=== PATIENT | female | born 1935 | race Caucasian/White ===

== ENCOUNTER 2017-08-10 17:10 | Emergency (ER) | payer MEDICARE ==
[~2017-08-10] VITALS: Ht 157.5 cm; Wt 54.0 kg
[2017-08-10 17:24] VITALS: BP 116/70; PULSE 90; RESP 19
[2017-08-10] MEDS ORDERED: diphenhydrAMINE HCL 50 MG/ML VIAL IM ONE (17:30)
[2017-08-10] MEDS ORDERED: LORazepam 2 MG/ML VIAL IM ONE (17:30)
[2017-08-10] MEDS ORDERED: HALOPERIDOL LACTATE 5 MG/ML AMP IM ONE (17:30)
[2017-08-10] MEDS ORDERED: LORazepam 2 MG/ML VIAL ONE (17:31)
[2017-08-10] MEDS ORDERED: LEXA10TA PO (19:11)
[2017-08-10] MEDS ORDERED: HYDR50CA PO (19:11)
[2017-08-10] MEDS ORDERED: LORA-392 PO ×2 (19:11)
[2017-08-10] MEDS ORDERED: ABH GEL TOPICAL (19:11)
[2017-08-10] MEDS ORDERED: CALCTAB94 PO (19:11)
[2017-08-10] MEDS ORDERED: ARIC10TA9 PO (19:11)
--- NOTE | 2017-08-10 19:39 | PD ---
HPI Chief Complaint: Psychiatric Symptoms Time Seen by Provider: 17:26 Travel History International Travel<30 days: No Contact w/Intl Traveler<30days: No Traveled to known affect area: No History of Present Illness HPI This is an 82-year-old female with a history of dementia who presents to the emergency department having been belligerent and aggressive towards the staff at her [facility]. She is unable to provide any history. PFSH Past Medical History Dementia: Yes ?: Not Social History Tobacco Use: No Allergies-Medications (Allergen,Severity, Reaction): Coded Allergies: Penicillins (Verified Allergy, Unknown, 08/10/17) codeine (Verified Allergy, Unknown, 08/10/17) meperidine (Verified Allergy, Unknown, 08/10/17) morphine (Verified Allergy, Unknown, 08/10/17) Reported Meds & Prescriptions Reported Meds & Active Scripts Active Reported Hydroxyzine Pamoate 50 Mg Cap 50 Mg PO BID Lexapro (Escitalopram Oxalate) 10 Mg Tab 10 Mg PO DAILY Aricept (Donepezil HCl) 10 Mg Tablet 10 Mg PO DAILY Calcium 600 (Calcium Carbonate) 600 Mg Calcium (1500 Mg) Tab 600 Mg PO DAILY [Abh Gel ] 2 Ml TOPICAL BID Ativan (Lorazepam) 0.5 Mg Tab 0.5 Mg PO TID Review of Systems ROS Limitations: Poor Historian Except as stated in HPI: all other systems reviewed are Neg Physical Exam Narrative GENERAL: Frail elderly female in no acute distress SKIN: Focused skin assessment warm and dry. HEAD: Atraumatic. Normocephalic. EYES: Pupils equal and round. No injection or drainage. ENT: Moist mucous membranes NECK: Trachea midline. CARDIOVASCULAR: Regular rate and rhythm. No murmur appreciated. RESPIRATORY: Clear to auscultation. Breath sounds equal bilaterally. GASTROINTESTINAL: Abdomen soft, non-tender, nondistended. MUSCULOSKELETAL: No obvious deformities. NEUROLOGICAL: Awake and alert. No obvious cranial nerve deficits. Moving all extremities. PSYCHIATRIC: Agitated, yelling and hitting staff Data Data Last Documented VS Vital Signs Date Time Temp Pulse Resp B/P (MAP) Pulse Ox O2 Delivery O2 Flow Rate FiO2 08/11/17 13:25 08/11/17 12:25 77 14 97 Room Air 08/11/17 07:49 98.1 Orders Orders Lorazepam Inj (Ativan Inj) (08/10/17 17:31) Haloperidol Inj (Haldol Inj) (08/10/17 17:30) Lorazepam Inj (Ativan Inj) (08/10/17 17:30) Diphenhydramine Inj (Benadryl Inj) (08/10/17 17:30) Complete Blood Count With Diff (08/10/17 17:34) Comprehensive Metabolic Panel (08/10/17 17:34) ^ Insert Iv (08/10/17 17:34) Restraints Non-Violent KEVEN.Q3H (08/10/17 20:07) Sodium Chlorid 0.9% 500 Ml Inj (Ns 500 M (08/10/17 21:00) Diet Regular Basic (08/11/17 Breakfast) Hydroxyzine Pamoate (Vistaril) (08/11/17 09:00) Escitalopram (Lexapro) (08/11/17 09:00) Donepezil (Aricept) (08/11/17 09:00) Lorazepam (Ativan) (08/11/17 07:30) Calcium Carbonate (Oscal) (08/11/17 09:00) Psych Screen (08/11/17 07:34) Ed Discharge Order (08/11/17 11:43) Labs Laboratory Tests Test 08/10/17 19:08 White Blood Count 7.4 TH/MM3 Red Blood Count 4.54 MIL/MM3 Hemoglobin 13.9 GM/DL Hematocrit 41.4 % Mean Corpuscular Volume 91.1 FL Mean Corpuscular Hemoglobin 30.5 PG Mean Corpuscular Hemoglobin Concent 33.5 % Red Cell Distribution Width 13.4 % Platelet Count 243 TH/MM3 Mean Platelet Volume 7.7 FL Neutrophils (%) (Auto) 46.3 % Lymphocytes (%) (Auto) 34.5 % Monocytes (%) (Auto) 15.8 % Eosinophils (%) (Auto) 2.6 % Basophils (%) (Auto) 0.8 % Neutrophils # (Auto) 3.4 TH/MM3 Lymphocytes # (Auto) 2.6 TH/MM3 Monocytes # (Auto) 1.2 TH/MM3 Eosinophils # (Auto) 0.2 TH/MM3 Basophils # (Auto) 0.1 TH/MM3 CBC Comment DIFF FINAL Differential Comment Blood Urea Nitrogen 32 MG/DL Creatinine 1.12 MG/DL Random Glucose 114 MG/DL Total Protein 7.0 GM/DL Albumin 3.5 GM/DL Calcium Level 8.9 MG/DL Alkaline Phosphatase 71 U/L Aspartate Amino Transf (AST/SGOT) 31 U/L Alanine Aminotransferase (ALT/SGPT) 18 U/L Total Bilirubin 0.4 MG/DL Sodium Level 144 MEQ/L Potassium Level 4.1 MEQ/L Chloride Level 108 MEQ/L Carbon Dioxide Level 24.7 MEQ/L Anion Gap 11 MEQ/L Estimat Glomerular Filtration Rate 46 ML/MIN MDM Medical Decision Making Medical Screen Exam Complete: Yes Emergency Medical Condition: Yes Interpretation(s) afebrile, no tachycardia, normotensive no leukocytosis renal insufficiency Differential Diagnosis Dehydration, dementia, behavioral disturbance Narrative Course This is an 82-year-old female who has a history of dementia. She is very agitated on arrival. She was given IM sedation. Labs are reassuring. Patient appears to have dementia with behavioral disturbance. She will be evaluated by psychiatry. Nesha Rodriguez MD Aug 10, 2017 19:39
[2017-08-10 20:11] LABS: AUTOMATED NEUTROPHIL # 3.4 TH/MM3 (1.8-7.7); BASOPHIL # 0.1 TH/MM3 (0-0.2); BASOPHIL % 0.8 % (0.0-2.0); EOSINOPHIL # 0.2 TH/MM3 (0-0.4); EOSINOPHIL % 2.6 % (0.0-4.0); HEMATOCRIT 41.4 % (35.0-46.0); HEMOGLOBIN 13.9 GM/DL (11.6-15.3); LYMPH % 34.5 % (9.0-44.0); LYMPHOCYTE # 2.6 TH/MM3 (1.0-4.8); MEAN CELL VOLUME 91.1 FL (80.0-100.0); MEAN CORPUSCULAR HEMOGLOBIN 30.5 PG (27.0-34.0); MEAN CORPUSCULAR HGB CONC 33.5 % (32.0-36.0); MEAN PLATELET VOLUME 7.7 FL (7.0-11.0); MONO % 15.8 % (0.0-8.0); MONOCYTE # 1.2 TH/MM3 (0-0.9); NEUT % 46.3 % (16.0-70.0); PLATELET COUNT 243 TH/MM3 (150-450); RED BLOOD COUNT 4.54 MIL/MM3 (4.00-5.30); RED CELL DISTRIBUTION WIDTH 13.4 % (11.6-17.2); WHITE BLOOD COUNT 7.4 TH/MM3 (4.0-11.0)
[2017-08-10 20:25] LABS: ALT (GPT) 18 U/L (10-53)
[2017-08-10 20:28] LABS: ALKALINE PHOSPHATASE 71 U/L (45-117); TOTAL BILIRUBIN ADULT 0.4 MG/DL (0.2-1.0)
[2017-08-10 20:48] LABS: ALBUMIN 3.5 GM/DL (3.4-5.0); AST (GOT) 31 U/L (15-37); BICARBONATE 24.7 MEQ/L (21.0-32.0); BLOOD UREA NITROGEN 32 MG/DL (7-18); CALCIUM 8.9 MG/DL (8.5-10.1); CHLORIDE 108 MEQ/L (98-107); CREATININE 1.12 MG/DL (0.50-1.00); GLOMERULAR FILTRATION RATE 46 ML/MIN (>89); GLUCOSE,RANDOM 114 MG/DL (74-106); SODIUM (NA) 144 MEQ/L (136-145)
[2017-08-10] MEDS ORDERED: SODIUM CHLORID 0.9% 500 ML INJ 500 ML IV ONE (21:00)
[2017-08-10 22:14] VITALS: BP 140/68; PULSE 83; RESP 16; TEMP 97.6; O2SAT 97
[2017-08-11 04:58] VITALS: BP_SYST 135; BP_SYST 147; BP_DIAS 62; BP_DIAS 68; PULSE 76; RESP 16; O2SAT 97
[2017-08-11] MEDS ORDERED: LORazepam 0.5 MG TAB PO SCH (07:30)
[2017-08-11 07:49] VITALS: BP 103/64; PULSE 98; RESP 17; TEMP 98.1; O2SAT 93
[2017-08-11] MEDS ORDERED: DONEPEZIL HCL 5 MG TAB PO SCH (09:00)
[2017-08-11] MEDS ORDERED: CALCIUM CARBONATE 1.25 GM (CA 500 MG) TAB PO SCH (09:00)
[2017-08-11] MEDS ORDERED: ESCITALOPRAM OXALATE 10 MG TAB PO SCH (09:00)
--- NOTE | 2017-08-11 11:42 | PD ---
Physical Exam Date Seen by Provider: Aug 11, 2017 Time Seen by Provider: 11:40 Narrative 82-year-old female with known dementia, arrives via EMS from nursing facility with reported aggressive behavior toward staff. She was Campbell acted with medication review requested. Patient has been seen by psychiatric staff and deemed to be psychiatrically stable for discharge with a diagnosis of dementia. Recommendation would be to lessen her Ativan frequency, as this may cause her to be less inhibited, which could contribute to her aggressive behavior. Patient is felt to be stable for discharge back to nursing facility. Data Data Last Documented VS Vital Signs Date Time Temp Pulse Resp B/P (MAP) Pulse Ox O2 Delivery O2 Flow Rate FiO2 08/11/17 07:49 98.1 98 17 103/64 (77) 93 Room Air Orders Orders Lorazepam Inj (Ativan Inj) (08/10/17 17:31) Haloperidol Inj (Haldol Inj) (08/10/17 17:30) Lorazepam Inj (Ativan Inj) (08/10/17 17:30) Diphenhydramine Inj (Benadryl Inj) (08/10/17 17:30) Complete Blood Count With Diff (08/10/17 17:34) Comprehensive Metabolic Panel (08/10/17 17:34) ^ Insert Iv (08/10/17 17:34) Restraints Non-Violent KEVEN.Q3H (08/10/17 20:07) Sodium Chlorid 0.9% 500 Ml Inj (Ns 500 M (08/10/17 21:00) Diet Regular Basic (08/11/17 Breakfast) Hydroxyzine Pamoate (Vistaril) (08/11/17 09:00) Escitalopram (Lexapro) (08/11/17 09:00) Donepezil (Aricept) (08/11/17 09:00) Lorazepam (Ativan) (08/11/17 07:30) Calcium Carbonate (Oscal) (08/11/17 09:00) Psych Screen (08/11/17 07:34) Labs Laboratory Tests Test 08/10/17 19:08 White Blood Count 7.4 TH/MM3 Red Blood Count 4.54 MIL/MM3 Hemoglobin 13.9 GM/DL Hematocrit 41.4 % Mean Corpuscular Volume 91.1 FL Mean Corpuscular Hemoglobin 30.5 PG Mean Corpuscular Hemoglobin Concent 33.5 % Red Cell Distribution Width 13.4 % Platelet Count 243 TH/MM3 Mean Platelet Volume 7.7 FL Neutrophils (%) (Auto) 46.3 % Lymphocytes (%) (Auto) 34.5 % Monocytes (%) (Auto) 15.8 % Eosinophils (%) (Auto) 2.6 % Basophils (%) (Auto) 0.8 % Neutrophils # (Auto) 3.4 TH/MM3 Lymphocytes # (Auto) 2.6 TH/MM3 Monocytes # (Auto) 1.2 TH/MM3 Eosinophils # (Auto) 0.2 TH/MM3 Basophils # (Auto) 0.1 TH/MM3 CBC Comment DIFF FINAL Differential Comment Blood Urea Nitrogen 32 MG/DL Creatinine 1.12 MG/DL Random Glucose 114 MG/DL Total Protein 7.0 GM/DL Albumin 3.5 GM/DL Calcium Level 8.9 MG/DL Alkaline Phosphatase 71 U/L Aspartate Amino Transf (AST/SGOT) 31 U/L Alanine Aminotransferase (ALT/SGPT) 18 U/L Total Bilirubin 0.4 MG/DL Sodium Level 144 MEQ/L Potassium Level 4.1 MEQ/L Chloride Level 108 MEQ/L Carbon Dioxide Level 24.7 MEQ/L Anion Gap 11 MEQ/L Estimat Glomerular Filtration Rate 46 ML/MIN MDM Medical Record Reviewed: Yes Supervised Visit with MARCOS: Yes Narrative Course 82-year-old female with known dementia, arrives via EMS from nursing facility with reported aggressive behavior toward staff. She was Shannan acted with medication review requested. Patient has been seen by psychiatric staff and deemed to be psychiatrically stable for discharge with a diagnosis of dementia. Recommendation would be to lessen her Ativan frequency, as this may cause her to be less inhibited, which could contribute to her aggressive behavior. Patient is felt to be stable for discharge back to nursing facility. Diagnosis Primary Impression: Dementia Qualified Codes: F03.91 - Unspecified dementia with behavioral disturbance Patient Instructions: General Instructions Additional Instruction: She was Shannan acted with medication review requested. Patient has been seen by psychiatric staff and deemed to be psychiatrically stable for discharge with a diagnosis of dementia. Recommendation would be to lessen her Ativan frequency , as this may cause her to be less inhibited, which could contribute to her aggressive behavior. Patient is felt to be stable for discharge back to nursing facility. Med/Other Pt SpecificInfo: Prescription(s) given Disposition: 03 DISCHARGE TO SNF Condition: Stable Rustam Hutchinson Aug 11, 2017 11:42
--- NOTE | 2017-08-11 12:05 | PD ---
History of Present Illness Chief Complaint: Psychiatric Symptoms Time Seen by Provider: 11:20 Travel History International Travel<30 Days: No Contact w/Intl Traveler<30days: No Known affected area: No Legal Status Legal Status: Campbell Act Campbell Act Signed By: Victor Manuel Mccurdy History of Present Illness: History of Present Illness HPI This is an 82-year-old female with a history of dementia a resident of [facility] who presents to the emergency department under a Campbell act alleging that the patient had been acting violently and possible need an adjustment to her dementia medication. Goes on to state that while unseen the police observed her become violent with staff pushing them away and trying to hit them and that she stated that she would kill them. Upon arrival to the ED last night she was agitated and required ETO's. This morning the nurse reports that she has not been agitated or aggressive. EMR is reviewed. No previous contact with [facility] psychiatry. No toxicology screen available for review to determine if the patient has in fact been getting her Ativan. No urinalysis available. Patient is seen. She is asleep. She responds to her name being called. The patient is calm. She is not oriented to time and when asked what year it is she states "pretty close to the year". When asked about the day she states "yesterday". The patient does not appear to be responding to internal stimuli. History is limited due to patient's level of dementia. I have reviewed her medication list from the [facility] and I note that the patient is receiving Ativan 0.5 mg 3 times a day as well as receiving ABH gel which is that the topical Ativan 1mg Benadryl 50 mg and 2 mg of Haldol twice a day. As per their documentation this was increased on the . Patient might be exhibiting and disinhibition from the Ativan that she is receiving as she is over 65 and this is certainly an age group that is more susceptible to this. PFSH Past Medical History Dementia: Yes ?: Not Psychiatric History Psychiatric History Hx Psychiatric Treatment: Patient with dementia. History of Inpatient Treatment: No Guns or firearms in home: No (No information available lives in secure environment) Social History Patient is not able to provide any information. As per records she is . Hx Alcohol Use: No Hx Tobacco Use: No (Unable to answer) Hx Substance Use: No ( unable to answer unable to answer) Family Psychiatric History Unknown Allergies-Medications (Allergen,Severity, Reaction): Coded Allergies: Penicillins (Verified Allergy, Unknown, 08/10/17) codeine (Verified Allergy, Unknown, 08/10/17) meperidine (Verified Allergy, Unknown, 08/10/17) morphine (Verified Allergy, Unknown, 08/10/17) Reported Meds & Prescriptions Reported Meds & Active Scripts Active Reported Hydroxyzine Pamoate 50 Mg Cap 50 Mg PO BID Lexapro (Escitalopram Oxalate) 10 Mg Tab 10 Mg PO DAILY Aricept (Donepezil HCl) 10 Mg Tablet 10 Mg PO DAILY Calcium 600 (Calcium Carbonate) 600 Mg Calcium (1500 Mg) Tab 600 Mg PO DAILY [Abh Gel ] 2 Ml TOPICAL BID Ativan (Lorazepam) 0.5 Mg Tab 0.5 Mg PO TID Review of Systems ROS Limitations: Poor Historian Mental Status Examination Appearance: Appropriate Consciousness: Asleep Orientation: Person (Only) Motor Activity: Other (In bad) Speech: Other (Nonsensical) Language: Other (Limited) Fund of Knowledge: Poor Attention and Concentration: Inadequate Memory: Impaired Mood: Appropriate Affect: Appropriate Thought Process & Associations: Other (Diminished) Thought Content: Other (Unable to) Hallucination Type: None (Does not appear to be) Delusion Type: None Suicidal Ideation: No Suicidal Plan: No Suicidal Intention: No Homicidal Ideation: No Homicidal Plan: No Homicidal Intention: No Insight: Poor Judgment: Poor MDM Medical Decision Making Medical Record Reviewed: Yes Assessment/Plan This is an 82-year-old female with a history of dementia a resident of [facility] who presents to the emergency department under a Campbell act alleging that the patient had been acting violently and possible need an adjustment to her dementia medication. Goes on to state that while unseen the police observed her become violent with staff pushing them away and trying to hit them and that she stated that she would kill them. Upon arrival to the ED last night she was agitated and required ETO's. This morning the nurse reports that she has not been agitated or aggressive. The patient at this time is calm and not exhibiting any aggression. Patient does not meet criteria for inpatient psychiatric treatment. She exhibits advanced stages of dementia. I have looked at her current medication sheet and I have recommended to ED provider to suggest to [facility] to decrease the amount of benzodiazepines that the patient is receiving. At this time the Campbell act as lifted. Psychiatric clear for discharge from the ED. Orders Orders Lorazepam Inj (Ativan Inj) (08/10/17 17:31) Haloperidol Inj (Haldol Inj) (08/10/17 17:30) Lorazepam Inj (Ativan Inj) (08/10/17 17:30) Diphenhydramine Inj (Benadryl Inj) (08/10/17 17:30) Complete Blood Count With Diff (08/10/17 17:34) Comprehensive Metabolic Panel (08/10/17 17:34) ^ Insert Iv (08/10/17 17:34) Restraints Non-Violent KEVEN.Q3H (08/10/17 20:07) Sodium Chlorid 0.9% 500 Ml Inj (Ns 500 M (08/10/17 21:00) Diet Regular Basic (08/11/17 Breakfast) Hydroxyzine Pamoate (Vistaril) (08/11/17 09:00) Escitalopram (Lexapro) (08/11/17 09:00) Donepezil (Aricept) (08/11/17 09:00) Lorazepam (Ativan) (08/11/17 07:30) Calcium Carbonate (Oscal) (08/11/17 09:00) Psych Screen (08/11/17 07:34) Ed Discharge Order (08/11/17 11:43) Results Vital Signs Date Time Temp Pulse Resp B/P (MAP) Pulse Ox O2 Delivery O2 Flow Rate FiO2 08/11/17 07:49 98.1 98 17 103/64 (77) 93 Room Air 08/11/17 04:58 76 16 147/68 (94) 97 Room Air 08/10/17 22:14 97.6 83 16 140/68 (92) 97 Room Air 08/10/17 17:24 90 19 116/70 (85) Laboratory Tests Test 08/10/17 19:08 White Blood Count 7.4 Red Blood Count 4.54 Hemoglobin 13.9 Hematocrit 41.4 Mean Corpuscular Volume 91.1 Mean Corpuscular Hemoglobin 30.5 Mean Corpuscular Hemoglobin Concent 33.5 Red Cell Distribution Width 13.4 Platelet Count 243 Mean Platelet Volume 7.7 Neutrophils (%) (Auto) 46.3 Lymphocytes (%) (Auto) 34.5 Monocytes (%) (Auto) 15.8 Eosinophils (%) (Auto) 2.6 Basophils (%) (Auto) 0.8 Neutrophils # (Auto) 3.4 Lymphocytes # (Auto) 2.6 Monocytes # (Auto) 1.2 Eosinophils # (Auto) 0.2 Basophils # (Auto) 0.1 CBC Comment DIFF FINAL Differential Comment Blood Urea Nitrogen 32 Creatinine 1.12 Random Glucose 114 Total Protein 7.0 Albumin 3.5 Calcium Level 8.9 Alkaline Phosphatase 71 Aspartate Amino Transf (AST/SGOT) 31 Alanine Aminotransferase (ALT/SGPT) 18 Total Bilirubin 0.4 Sodium Level 144 Potassium Level 4.1 Chloride Level 108 Carbon Dioxide Level 24.7 Anion Gap 11 Estimat Glomerular Filtration Rate 46 Diagnosis Primary Impression: Dementia Psychiatrically Cleared: Yes Departure Forms: Tests/Procedures Patient Instructions: General Instructions Additional Instructions: She was Campbell acted with medication review requested. Patient has been seen by psychiatric staff and deemed to be psychiatrically stable for discharge with a diagnosis of dementia. Recommendation would be to lessen her Ativan frequency , as this may cause her to be less inhibited, which could contribute to her aggressive behavior. Patient is felt to be stable for discharge back to nursing facility. Disposition: 03 DISCHARGE TO SNF Condition: Stable Problem Qualifiers Primary Impression: Dementia Qualified Codes: F03.91 - Unspecified dementia with behavioral disturbance Shannon Chapin Aug 11, 2017 12:05
[2017-08-11 12:25] VITALS: BP 116/59; PULSE 77; RESP 14; O2SAT 97
== END 2017-08-11 13:26 ==
LOC: NEPD 17:10
DX: F03.91 Unspecified dementia, unspecified severity, with behavioral disturbance (principal)
CPT/HCPCS: 80053; 85025; 96360; 96361; 96372; 99285; J1200; J1630; J2060; J7040